=== PATIENT | female | born 1990 | race Hispanic/Latino ===

== ENCOUNTER 2020-09-20 12:09 | Emergency (ER) | payer BC, OTHER | END 2020-09-20 12:45 | disposition home or self-care (01) | LOC: EDH 12:09 | DX: I10 Essential (primary) hypertension (principal); F41.9 Anxiety disorder, unspecified; Z88.1 Allergy status to other antibiotic agents; Z88.6 Allergy status to analgesic agent | CPT/HCPCS: 99281 ==